=== PATIENT | female | born 1930 | race Caucasian/White ===

== ENCOUNTER → 2016-09-29 | Outpatient (CLI) | payer MEDICARE ==
[~2016-09-29] MED LIST: AMBIEN DPS5 MG PO; ASA CHILDREN'S81 MG PO; BENICAR HCT 401 EACH PO; CALCIUM 600 +1 EAC3 PO; CENTRUM SILVER1 EAC1 PO; GLUCOPHAGE-DPS500 MG PO; KLONOPIN DPS0.5 MG PO; LASIX DPS20 MG PO; MACRODANTIN100 MG PO; NORVASC5 MG PO; PRESERVISION A1 EACH PO; VESICARE5 MG PO
== END | disposition home or self-care (01) ==
LOC: PTH.S 09-27 16:15
DX: R19.7 Diarrhea, unspecified (principal)